=== PATIENT | male | born 1985 ===

== ENCOUNTER 2022-03-25 21:21 | Observation (INO) | payer BC ==
--- OUTSIDE RECORDS SUMMARY | 2022-03-25 21:26 | XMS REPORT | Continuity of Care Document ---
:1985 Author Organization [facility] t Address [address] [place] [address] [address] [place] [address] Care Team Providers Name Role Phone Jr Alaniz MD Attending Clinician JR ALANIZ Attending Clinician Unavailable Doctor Unassigned, [place] Attending Clinician Unavailable Mandy Hughes Attending Clinician Ankit BROOKS, Francia Ruth Attending Clinician [phone] MANDY MANN Attending Clinician Unavailable Tin Attending Clinician Unavailable Ankit BROOKS, Francia Ruth Admitting Clinician [phone] Tin Admitting Clinician Unavailable Payers Payer Name Policy Type Policy Number Effective Date Expiration Date S ource Problems Condition Condition Condition Status Onset Resolution Last Treating Co mments Source Name Details Category Date Date Treatment Clinician Date Acute Acute Disease Active [facility] appendicit appendicit 1 it y of is is 00:00: [address] Allergies, Adverse Reactions, Alerts Allergy Allergy Status Severity Reaction(s) Onset Inactive Treating Comm ents Source Name Type Date Date Clinician NO KNOWN Drug Active Univers ALLERGIE Class ity of S [facility] Social History Social Habit Start Date Stop Date Quantity Comments Source Sex Assigned At [facility]it y of [facility] Exposure to Not sure [place] of SARS-CoV-2 [facility] (event) [place] Tobacco use and 2020-05-17 2020-05-17 Never used Universit y of exposure 00:00:00 00:00:00 [facility] Alcohol intake 2020-05-17 2020-05-17 Current drinker Unive rsity of 00:00:00 00:00:00 of alcohol [facility] (finding) [place] Alcohol Comment 2020-04-25 2020-04-25 [facility] 00:00:00 00:00:00 [facility] Smoking Status Start Date Stop Date Source Never smoker [facility] Medications Ordered Filled Start Stop Current Ordering Indication Dosage Frequency Signature Comments Components Source Medication Medication Date Date Medication? Clinician (SIG) Name Name lactated Yes 1000mL at 75 Univer s ringers IV 1-06 mL/hr, ity of infusion 18:30: 1,000 [place] 1[place]000 [place] 00 IV Medical Infusion, Branch CONTINUOUS , Starting Thu04/25/20 at 1230, Until Discontinu ed, Routine, PACU HYDROmorpho Yes .2mg 0.2 mg, Uni vers ne 06 Slow IV ity of (DILAUDID) 18:20: Push, [place] injection 15 Q5MIN PRN, Medi stu 0.2 mg 10 doses, Branch Starting Thu04/25/20 at 1220, Until Discontinu ed, Routine, Pain (scale 7-10), PACU
Us e approved by (Faculty): PACU USE -ANESTHESI A SERVICE-HY DROMORPHON E INJECTIONS FENTanyl PF Yes 25ug 25 mcg, Uni vers (SUBLIMAZE 04-25 Slow IV ity of (PF)) 18:20: Push, [place] injection 15 Q5MIN PRN, Medi stu 25 mcg 4 doses, Branch Starting Thu04/25/20 at 1220, Until Discontinu ed, Routine, Pain (scale 4-6), PACU ondansetron Yes 4mg 4 mg, Slow Univers (ZOFRAN 04-25 IV Push, ity of (PF)) 18:20: PRN, 1 [place] injection 4 15 dose, Medical mg Starting Branch Thu04/25/20 at 1220, Until Discontinu ed, Routine, Nausea and Vomiting (N/V), PACU bupivacaine Yes PRN, Univer s -epinephrin 04-25 Starting ity of e-pf 17:31: Thu04/25/20 [place] (SENSORCAIN 00 at 1131, Medi stu E Intra-op Branch W/EPINEPHRI NE) 0.25 %-1:200,000 30 mL, lidocaine 1% (PF) (XYLOCAINE) 30 mL piperacilli Yes 3.375g 3.375 g, Univers n-tazobacta 04-25 IV ity of m (ZOSYN) 10:00: [place], [place] 3.375 g in 00 Q6H ABX, Medic al NaCl 0.9% First dose Bran ch (NS) 100 mL on Thu MINI-BAG 04/25/20 at 0400, Until Discontinu ed, 100 mL
R do for Anti-Infec tive: Documented Infection< br>Documen raciel Infection Site: Abdominal< br>Dura tion of Therapy: 7 days morpHINE 2020- No 2mg 2 mg, Slow Un mady injection 2 04-25 IV Push, ity of mg 07:03: 07:02 Q4HPRN, [place] 33 :33 Starting Medical 04/25/20 Branch at 0103, Until Amanda 04/26/20 at 0102, Routine, Pain (scale 7-10), Hold for SBP<110, DBP<60, RR<12, and/or drowsiness /sedation HYDROcodone 2020- No 1{tbl} 1 tablet, Univers -acetaminop 04-2508 Oral, ity of hen (NORCO 07:03: 07:02 Q6HPRN, [place] as 5) 5-325 mg 02 :02 Starting Medi stu tablet 1 Thu04/25/20 Branc h tablet at 0103, Until Thu04/27/20 at 0102, Routine, Pain (scale 4-6), Hold for SBP<110, DBP<60, RR<12, and/or drowsiness /sedation acetaminoph Yes 650mg 650 mg, Un mady en 06 Oral, ity of (TYLENOL) 07:03: Q6HPRN, [place] tablet 650 00 Starting Medic al mg Thu04/25/20 Branch at 0103, Until Discontinu ed, Routine, Pain (scale 1-3) piperacilli 2020- No 3.375g 3.375 g, Univers n-tazobacta 04-25-06 IV ity of m (ZOSYN) 04:30: 04:05 [place]back, [place] 3.375 g in 00 :00 ONCE, 1 Medica l NaCl 0.9% dose, Tue Branc h (NS) 100 mL 04/24/20 at MINI-BAG 2230, 100 mL
Reas on for Anti-Infec tive: Documented Infection< br>Documen raciel Infection Site: Abdominal< br>Duratio n of Therapy: Other (see Comments) NaCl 0.9% Yes 1000mL at 150 Univ ers (NS) IV 1-06 mL/hr, IV ity of infusion 03:30: Infusion, [place] 1,000 mL 00 CONTINUOUS Medic al , Starting Branch Tu 04/24/20 at 2130, Until Discontinu ed, MARYANN iohexol 2020- No 120mL 120 mL, Unive rs (OMNIPAQUE 04-25 Intravenou it y of 350 02:45: 02:34 s, ONCE, 1 [place] BULK-150 00 :00 dose, Tue Medica l mL) 04/24/20 at Branch injection 2045, 120 mL Routine ondansetron 2020- No 4mg 4 mg, Slow Univers (ZOFRAN 04-25 IV Push, ity of (PF)) 01:45: 02:14 ONCE, 1 [place] injection 4 00 :00 dose, [facility] Med ical mg 04/24/20 at Branch 194, MARYANN morpHINE 2020- No 4mg 4 mg, Slow Un mady injection 4 04-25 IV Push, ity of mg 01:45: 02:14 ONCE, 1 [place] 00 :00 dose, Tu Medical 04/24/20 at Branch 194, STAT NaCl 0.9% 2020- No 1000mL at 999 Uni vers (NS) bolus 04-2506 mL/hr, ity of infusion 00:45: 03:36 1,000 mL, [place] 1,000 mL 00 :00 IV Medical Infusion, [place] ONCE, 1 dose, [facility] 04/24/20 at 1845, MARYANN traMADoL 50 2020- No 4647 50mg Take 1 Uni vers mg tablet 04-25 tablet by ity of 00:00: 05:59 mouth [place] 00 :00 every 6 Medical (six) Branch hours as needed for Pain (scale 7-10) for up to 7 days. Indication s: acute pain traMADoL 50 No 4647 50mg Take 1 Uni vers mg tablet 04-25 tablet by ity of 00:00: 05:59 mouth [place] 00 :00 every 6 Medical (six) Branch hours as needed for Pain (scale 7-10) for up to 7 days. Indication s: acute pain traMADoL 50 4647 50mg Take 1 Uni vers mg tablet 04-25 tablet by ity of 00:00: 05:59 mouth [place] 00 :00 every 6 Medical (six) Branch hours as needed for Pain (scale 7-10) for up to 7 days. Indication s: acute pain No known No Univers medications [facility] No known No Univers medications [facility] No known No Univers medications [facility] Vital Signs Vital Name Observation Time Observation Value Comments Source Systolic blood 2020-05-17 16:17:00 115 mm[Hg] [facility] Diastolic blood 2020-05-17 16:17:00 76 mm[Hg] Unive [facility] Heart rate 2020-05-17 16:17:00 60 /min [facility] Body temperature 2020-05-17 16:17:00 36.72 Yoanna [facility] Body height 2020-05-17 16:17:00 182.9 cm [facility] Body weight 2020-05-17 16:17:00 88.905 kg [facility] BMI 2020-05-17 16:17:00 26.58 kg/m2 [facility] Oxygen saturation in 2020-05-17 16:17:00 95 /min [facility] Arterial blood by [facility] Pulse oximetry Branch Systolic blood 2020-04-25 18:55:00 120 mm[Hg] [facility] Diastolic blood 2020-04-25 18:55:00 77 mm[Hg] Unive [facility] Heart rate 2020-04-25 18:55:00 63 /min [facility] Respiratory rate 2020-04-25 18:55:00 18 /min [facility] Oxygen saturation in 2020-04-25 18:55:00 99 /min [facility] Arterial blood by [facility] Pulse oximetry Branch Body temperature 2020-04-25 18:45:00 36.67 Yoanna [facility] Body weight 2020-04-25 09:21:00 89.495 kg [facility] BMI 2020-04-25 09:21:00 26.76 kg/m2 [facility] Body height 2020-04-25 00:34:00 182.9 cm [facility] Procedures Procedure Date / Time Performing Clinician Source Performed ASSIGNMENT OF BENEFITS 2020-05-17 16:08:51 Doctor Ryan, [facility] [place] [facility] CT ABDOMEN PELVIS W 2020-04-25 02:38:46 Mandy Mann [facility] CONTRAST [facility] Branch COVID-19 (ID NOW RAPID 2020-04-25 01:22:00 Mandy Mann [facility] TESTING) Medical Branch LIPASE 2020-04-25 01:22:00 Mandy Mann [facility] COMP. METABOLIC PANEL 2020-04-25 01:22:00 Mandy Mann [facility] ([id number]) [facility] CBC WITH DIFF 2020-04-25 01:22:00 Mandy Mann [facility] URINALYSIS 2020-04-25 01:22:00 Mandy Mann [facility] NOTICE OF PRIVACY 2020-04-25 00:30:23 Doctor Davis, [facility] PRACTICES [place] Medical Branch CONSENT/REFUSAL FOR 2020-04-25 00:26:02 Doctor Ryan [facility] DIAGNOSIS AND TREATMENT [place] Medical [place] AGREEMENTS AUTHORIZATIONS 2020-04-24 06:01:00 Doctor Ryan, [facility] AND IRREVOCABLE [place] Medical [place] ASSIGNMENTS (FORM 2000) Encounters Start End Encounter Admission Attending Care Care Encounter Source Date/Time Date/Time Type Type Clinicians Facility Department ID 2020-05-17 2020-05-17 Office ROBERT Alaniz [id number] Univers 10:09:36 10:42:49 Visit Jr Naseem [id number] i ty of [place]2.[place] Profess[place] [phone] Fl dical [address] 2020-05-17 2020-05-17 [facility] [id number] Univers 10:00:00 10:00:00 JR gray of [facility] 2020-05-17 2020-05-17 Orders Doctor VIGNESH [id number] Univers 00:00:00 00:00:00 Only Unassigned, AISHA [id number] ity of [place] [facility] 4.2.7.2.686 [place] [id number] [address] 2020-04-26 2020-04-26 Telephone [facility] [id number] Univers 00:00:00 00:00:00 Jr Gusman [id number] i ty [id number] [id number] Fl dical nal [address] [place] [address] 2020-04-26 2020-04-26 Clinic [facility] [id number] Univers 00:00:00 00:00:00 Assessment Jr Gusman [id number] ity of [id number] Profess[place] [phone] Fl dical nal [address] [place] [address] 2020-04-24 2020-04-25 Emergency Mandy Mann [facility] [id number] Univers 19:21:00 13:47:00 Francia Pham [id number] ity of Jr Alaniz 4.2.7.2.686 [place] [facility] [phone] [address] 2020-04-24 2020-04-24 Emergency [facility] [id number] Univers 19:21:00 19:21:00 MANYD gray of [facility] 2019-07-13 2019-07-13 Outpatient Atau_P [facility] G [id number] [place] 03:16:00 03:16:00 0325 Medical Group Results Test Test Test Results Result Source Description Time Comments Comments CT ABDOMEN 2020-04- Mild acute appendicitis University of PELVIS W 06 without perforation or [place] CONTRAST 03:23:26 periappendiceal abscess. Branch RL: [id number] AFC: [id number] Critical findings were discussed with SOIL SORT WORKER Mandy Mann, who expressedunderstanding, on 04/24/2020 at 2123 Ordering physician: MANDY MANN Indication: Acute generalized abdominal pain COMPARISON: None TECHNIQUE: Axial images of the abdomen and pelvis are performed followingadministration of intravenous contrast material. Images were reformatted inthe coronal and sagittal plane. CT scan was performed according to ALARA(as low as reasonably achievable) policy. FINDINGS: The lung bases are clear. The liver, gallbladder, spleen, adrenalglands and pancreas are within normal limits. The kidneys are normal inappearance bilaterally without hydronephrosis. No abdominal aortic aneurysmor dissection is appreciated. There is no free fluid in the pelvis. There is no bowel obstruction,widespread diverticulosis or acute diverticulitis. The appendix is mildlydilated, measuring up to 10 mm, with mild adjacent inflammatory change. Noperforation or periappendiceal abscess is appreciated.. ?Bone windowsthrough the abdomen and pelvis demonstrate no osseous destructive lesion. [facility], Radiant Results Inft User - 04/24/2020 9:24 PM CSTOrdering physician: MANDY MONTOYANAIndication: Acute generalized abdominal painCOMPARISON: NoneTECHNIQUE: Axial images of the abdomen and pelvis are performed followingadministration of intravenous contrast material. Images were reformatted inthe coronal and sagittal plane. CT scan was performed according to ALARA(as low as reasonably achievable) policy.FINDINGS: The lung bases are clear. The liver, gallbladder, spleen, adrenalglands and pancreas are within normal limits. The kidneys are normal inappearance bilaterally without hydronephrosis. No abdominal aortic aneurysmor dissection is appreciated.There is no free fluid in the pelvis. There is no bowel obstruction,widespread diverticulosis or acute diverticulitis. The appendix is mildlydilated, measuring up to 10 mm, with mild adjacent inflammatory change. Noperforation or periappendiceal abscess is appreciated.. Bone windowsthrough the abdomen and pelvis demonstrate no osseous destructive lesion.IMPRESSIONMild acute appendicitis without perforation or periappendiceal abscess.RL: 460AFC: [id number] Critical findings were discussed with SOIL SORT WORKER aMndy Mann, who expressedunderstanding, on 04/24/2020 at 2123 ALYSIS 2020-04-25 01:59:00 Test Item Value Reference Range Interpretation Comme nts APPEARANCE (test code = Clear Clear 0549007173) COLOR (test code = 1399320444) Yellow Yellow PH (test code = 5947244870) 4.8-8.0 SP GRAVITY (test code = 1.003-1.030 9530935859) GLU U QUAL (test code = Normal Normal 1989873681) BLOOD (test code = 6881609349) Negative Negative KETONES (test code = 3172346872) Negative Negative PROTEIN (test code = 2887-8) Negative Negative UROBILIN (test code = 2.0 mg/dL Normal A 8666386380) BILIRUBIN (test code = Negative Negative 4303198430) NITRITE (test code = 5774027571) Negative Negative LEUK EITAN (test code = Negative Negative 2316226359) RBC/HPF (test code = 0746474950) <1 See_Comment [Automated message] The system which ge nerated this result transmit raciel reference range: 0 - 3 HP F. The reference range was not used to interpret th is result as normal/abnormal . WBC/HPF (test code = 6061799982) See_Comment [Automated message] The system which ge nerated this result transmit raciel reference range: 0 - 5 HP F. The reference range was not used to interpret th is result as normal/abnormal . BACTERIA (test code = Negative Negative 9473660086) SQ EPITH (test code = <1 HPF 2234040968) Lab Interpretation (test code = Abnormal 26322-3) [facility] NOW RAPID TESTING)2020-04-25 01:55:00 Test Item Value Reference Range Interpretation Comments SARS-CoV-2 Rapid ID NOW Not Detected Not Detected (test code = 76411-5) JONNATHAN (test code = JONNATHAN) ID NOW COVID-19 Assay is an isothermal nucleic acid amplification test intended for the qualitative detection of nucleic acid from SARS-CoV-2 viral RNA in nasopharyngeal (SOIL SORT WORKER) specimens. It is used under Emergency Use Authorization (EUA) by FDA. The limit of detection (LOD) of the assay is 125 Genome Equivalents/mL. A positive result is indicative of the presence of SARS-CoV-2 RNA. ?Clinical correlation with patient history and other diagnostic information is necessary to determine patient infection status. A negative (Not Detected) result does not preclude SARS-CoV-2 infection. In patients with clinical symptoms and other tests that are consistent with SARS-CoV-2 infection, negative results should be treated as presumptive negative and a new specimen should be tested with alternative PCR molecular test. Invalid: Please collect a new specimen for repeat patient testing if clinically indicated. Lab Interpretation Normal (test code = 65226-9) [facility]. METABOLIC PANEL (44548)2020-04-25 01:45:00 Test Item Value Reference Range Interpretation Comments NA (test code = 138 mmol/L 135-145 2411694336) K (test code = 4.0 mmol/L 3.5-5 7207015538) CL (test code = 101 mmol/L 98-108 4542665853) CO2 TOTAL (test code = 29 mmol/L 23-31 6466948052) AGAP (test code = 2-16 9726663354) BUN (test code = 14 mg/dL 7-23 6272781530) GLUCOSE (test code = 102 mg/dL 70-110 6204811454) CREATININE (test code 1.08 mg/dL 0.6-1.25 = 6907213914) TOTAL BILI (test code 0.6 mg/dL 0.1-1.1 = 6131188778) CALCIUM (test code = 8.6 mg/dL 8.6-10.6 0810603077) T PROTEIN (test code = 7.5 g/dL 6.3-8.2 0960153570) ALBUMIN (test code = 4.4 g/dL 3.5-5 3842511943) ALK PHOS (test code = 49 U/L 34-122 7467065113) ALTv (test code = 45 U/L 5-50 1742-6) AST(SGOT) (test code = 30 U/L 13-40 8769015688) eGFR Calculation mL/min/1.73m2 (Non-) (test code = 5155320763) eGFR Calculation mL/min/1.73m2 () (test code = 6620202600) JONNATHAN (test code = JONNATHAN) Association of Glomerular Filtration Rate (GFR) and Staging of Kidney Disease* + -+ + ---+| GFR (mL/min/1.73 m2) ?| With Kidney Damage ?| ?Without Kidney Damage+ -------+ ------+ ---------+| ?>90 ?| ?Stage one ?| ? Normal ?+ --+ -+ ----+| ?60-89 ?| ?Stage two ?| ? Decreased GFR ? + -+ + ---+| ?30-59 ?| ?Stage three ?| ? Stage three ? + -+ + ---+| ?15-29 ?| ?Stage four ? | ? Stage four ?+ --+ -+ ----+| ?<15 (or dialysis) ? ?| ?Stage five ? | ? Stage five ?+ --+ -+ ----+ *Each stage assumes the associated GFR level has been in effect for at least three months. ?Stages 1 to 5, with or without kidney disease, indicate chronic kidney disease. Notes: Determination of stages one and two (with eGFR >59mL/min/1.73 m2) requires estimation of kidney damage for at least three months as defined by structural or functional abnormalities of the kidney, manifested by either:Pathological abnormalities or Markers of kidney damage (including abnormalities in the composition of the blood or urine or abnormalities in imaging tests). [facility]45:00 Test Item Value Reference Range Interpretation Comments LIPASE (test code = 3815252221) 1307 U/L 0-220 H Lab Interpretation (test code = Abnormal 01697-4) [facility] [id number] 01:32:00 Test Item Value Reference Range Interpretation Comments WBC (test code = See_Comment H [Automated 6690-2) message] The system which generated this result transmit raciel reference range : 4.20 - 10.70 10*3/?L. The reference range was not used to interpret this result as normal/abnormal . RBC (test code = See_Comment [Automated 789-8) message] The system which generated this result transmit raciel reference range : 4.26 - 5.52 10*6/?L. The reference range was not used to interpret this result as normal/abnormal . HGB (test code = 16.5 g/dL 12.2-16.4 H 718-7) HCT (test code = 47.4 % 38.4-49.3 4544-3) MCV (test code = 88.6 fL 81.7-95.6 787-2) MCH (test code = 30.8 pg 26.1-32.7 785-6) MCHC (test code = 34.8 g/dL 31.2-35 786-4) RDW-SD (test code = 40.0 fL 38.5-51.6 46555-2) RDW-CV (test code = 12.2 % 12.1-15.4 788-0) PLT (test code = See_Comment [Automated 777-3) message] The system which generated this result transmit raciel reference range : 150 - 328 10*3/ ?L. The reference range was not u sed to interpret th is result as normal/abnormal . MPV (test code = 9.4 fL 9.8-13 L 94691-8) NRBC/100 WBC (test See_Comment [Automat ed code = 8181971694) message] The system which generated this result transmit raciel reference range : 0.0 - 10.0 /100 WBCs. The reference range was not used to interpret this result as normal/abnormal . NRBC x10^3 (test code <0.01 See_Comment [Auto mated = 8483574988) message] The system which generated this result transmit raciel reference range : 10*3/?L. The reference range was not used to interpret this result as normal/abnormal . GRAN MAT (NEUT) % 81.5 % (test code = 770-8) IMM GRAN % (test code 0.60 % = 8688386871) LYMPH % (test code = 8.5 % 736-9) MONO % (test code = 6.2 % 5905-5) EOS % (test code = 2.5 % 713-8) BASO % (test code = 0.7 % 706-2) GRAN MAT x10^3(ANC) 13.08 10*3/uL 1.99-6.95 H (test code = 6682998710) IMM GRAN x10^3 (test 0.09 10*3/uL 0-0.06 H code = 5846832733) LYMPH x10^3 (test code 1.37 10*3/uL 1.09-3.23 = 731-0) MONO x10^3 (test code 0.99 10*3/uL 0.36-1.02 = 742-7) EOS x10^3 (test code = 0.40 10*3/uL 0.06-0.53 711-2) BASO x10^3 (test code 0.11 10*3/uL 0.01-0.09 H = 704-7) Lab Interpretation Abnormal (test code = 10061-3) [facility]"
[2022-03-25] MEDS ORDERED: GLUCAGON 1 MG/VIAL ONE (22:10)
[2022-03-25] MEDS ORDERED: NA CHLORIDE 0.9% 1,000 ML ONE (22:10)
[2022-03-25] MEDS ORDERED: ONDANSETRON 4 MG/2 ML VIAL ONE (22:10)
[2022-03-25] MEDS ORDERED: NA CHLORIDE 0.9% 500 ML ONE (22:10)
[2022-03-25 23:08] LABS: SARS-CoV-2 Antigen Rapid Res Negative (Negative)
[2022-03-25 23:11] LABS: Hematocrit 44.6 % (39.6-49.0); Lymphocytes % 26.6 % (15.3-44.8); MCV 89.2 fL (80-100); MPV 7.6 fL (7.6-11.3)
[2022-03-25 23:13] LABS: Protime INR 1.2
[2022-03-25 23:24] LABS: Bilirubin Direct 0.1 mg/dL (0-0.2); Bilirubin Total 0.6 mg/dL (0.2-1.0); Magnesium 2.1 mg/dL (1.8-2.4); Potassium 3.7 mmol/L (3.5-5.1); Protein, Total 7.4 g/dL (6.4-8.2); Troponin High Sensitivity 7.3 pg/mL (<58.9)
--- NOTE | 2022-03-25 23:52 | ER ---
Nurse's Notes [facility] Name: Keaton Alejandro Age: 36 yrs Sex: Male : 1985 Arrival Date: 03/25/2022 Time: 21:25 Bed 28 Private MD: Diagnosis: Esophageal obstruction-recurrent;Food in esophagus Presentation: 03/25 21:45 Chief complaint: Patient states: he has a condition in his throat where he sometimes bb gets food stuck about 2 hours ago he was eating fajitas and now has something stuck. Coronavirus screen: At this time, the client does not indicate any symptoms associated with coronavirus-19. Ebola Screen: No symptoms or risks identified at this time. Initial Sepsis Screen: Does the patient meet any 2 criteria? No. Patient's initial sepsis screen is negative. Does the patient have a suspected source of infection? No. Patient's initial sepsis screen is negative. Risk Assessment: Do you want to hurt yourself or someone else? Patient reports no desire to harm self or others. Onset of symptoms was March 25, 2022. 21:45 Method Of Arrival: Ambulatory bb 21:45 Acuity: PAYAM 2 bb Triage Assessment: 03/26 01:02 General: Appears in no apparent distress. Respiratory: the patient has moderate tw5 shortness of breath. 01:02 Respiratory: Onset: The symptoms/episode began/occurred suddenly. tw5 Historical: - Allergies: 03/25 21:47 No Known Allergies; bb - Home Meds: 21:47 Unable to obtain [Active]; bb - Social history:: Smoking status: unknown. Screenin:55 Abuse screen: Denies threats or abuse. Denies injuries from another. Nutritional tw5 screening: No deficits noted. Tuberculosis screening: No symptoms or risk factors identified. Fall Risk None identified. Assessment: 21:55 General: Appears in no apparent distress. Behavior is calm, cooperative, appropriate tw5 for age, Reports "The food got stuck around 6:30 tonight. I have been drinking water trying to get it down but it just wont. The water just come back up. Last time I got food stuck like this they had to do an endoscopy. The medication and soda didn't' work. That was about 4 year ago.". Pain: Complains of pain in mid-sternal area Pain currently is 2 out of 10 on a pain scale. Cardiovascular: Rhythm is regular. Respiratory: Airway is patent Trachea midline Respiratory effort is even, unlabored, 22:30 Reassessment: No changes from previously documented assessment. Patient and/or family tw5 updated on plan of care and expected duration. Pain level reassessed. Patient is alert, oriented x 3, equal unlabored respirations, skin warm/dry/pink. 23:39 Reassessment: No changes from previously documented assessment. Patient and/or family tw5 updated on plan of care and expected duration. Pain level reassessed. Patient is alert, oriented x 3, equal unlabored respirations, skin warm/dry/pink. 23:39 EENT: Reports "The soda just feels weird like it is just sitting in my throat.". tw5 03/26 00:21 General: Reports "I was able to get a little bit of the food up when all the soda came tw5 back up. Sorry but I have still not been able to keep any water or soda down.". Vital Signs: 03/25 21:45 BP 133 / 95; Pulse 90; Resp 16 S; Temp 99.1(TE); Pulse Ox 97% on R/A; Weight 83.91 kg bb (R); Height 6 ft. 0 in. (182.88 cm) (R); Pain 0/10; 21:55 BP 124 / 80; Pulse 80; Resp 18; Pulse Ox 96% on R/A; Pain 2/10; tw5 22:30 BP 132 / 87; Pulse 78; Resp 18; Pulse Ox 99% on R/A; Pain 2/10; tw5 23:39 BP 123 / 76; Pulse 89; Resp 12; Pulse Ox 98% on R/A; tw5 03/26 00:21 BP 123 / 66; Pulse 86; Resp 18; Pulse Ox 100% on R/A; Pain 0/10; tw5 03/25 21:45 Body Mass Index 25.09 (83.91 kg, 182.88 cm) bb ED Course: 03/25 21:25 Patient arrived in ED. bp1 21:47 Triage completed. bb 21:47 Arm band placed on Patient placed in an exam room, on a stretcher, on pulse oximetry. bb 21:53 Lela Foster is Primary Nurse. tw5 21:53 Gregg Frias MD is Attending Physician. beulah 21:55 Patient has correct armband on for positive identification. Placed in gown. Bed in low tw5 position. Call light in reach. Pulse ox on. NIBP on. Door closed. Noise minimized. Moved to private room. Warm blanket given. Verbal reassurance given. 22:07 EKG done, by ED staff, reviewed by Gregg Frias MD. tw5 22:24 Basic Metabolic Panel Sent. tw 22:24 CBC with Diff Sent. tw5 22:24 Magnesium Sent. tw5 22:24 NT PRO-BNP Sent. tw5 22:24 PT-INR Sent. tw5 22:24 Troponin HS Sent. tw5 22:24 LFT's Sent. tw5 22:24 SARS RAPID Sent. tw 22:30 Initial lab(s) drawn, by me, sent to lab. COVID swab sent to lab. Inserted saline lock: tw5 20 gauge in left antecubital area, using aseptic technique. Blood collected. 22:46 XRAY Chest (1 view) In Process Unspecified. EDMS 23:39 Diet: pop provided. tw5 23:51 Checo Lopez MD is Hospitalizing Provider. beulah 23:51 Baldo Lopez MD is Hospitalizing Provider. beulah 23:59 Gordon Damian MD is Hospitalizing Provider. la1 03/26 01:02 No provider procedures requiring assistance completed. Patient admitted, IV remains in tw5 place. Administered Medications: 03/25 22:24 Drug: NS 0.9% 500 ml Route: IV; Rate: bolus; Site: left antecubital; tw03/26 00:17 Follow up: Response: No adverse reaction; IV Status: Completed infusion; IV Intake: tw5 500ml 03/25 22:24 Drug: NS 0.9% 1000 ml Route: IV; Rate: 125 ml/hr; Site: left antecubital; tw03/26 01:02 Follow up: IV Status: Infusion continued upon admission tw5 03/25 22:26 Drug: Zofran (Ondansetron) 4 mg Route: IVP; Site: left antecubital; tw03/26 00:17 Follow up: Response: No adverse reaction 03/25 22:30 Drug: Glucagon 1 mg Route: IVP; Site: left antecubital; tw5 03/26 00:17 Follow up: Response: No adverse reaction 03/25 23:39 Drug: Glucagon 1 mg Route: IVP; Site: left antecubital; 03/26 00:18 Follow up: Response: No adverse reaction 00:22 Drug: ProTONIX (pantoprazole) 40 mg Route: IVP; Site: left antecubital; 01:02 Follow up: Response: No adverse reaction Medication: 03/25 21:55 VIS not applicable for this client. tw Intake: 03/26 00:17 IV: 500ml; Total: 500ml. Outcome: 03/25 23:52 Decision to Hospitalize by Provider. beulah 03/26 01:02 Admitted to ER Hold. Please see [facility] for further documentation. Condition: stable Discharge instructions given to patient, Instructed on the need for admit. 08:05 Patient left the ED. iw Signatures: Dispatcher [employer] Gregg Ziegler MD MD cha Ballard, Brenda, RN RN Mayda Ayon RN RN iw Moose Bettencourt, CARGO BROKER-C CARGO BROKER-Cla1 Marie Moon Tiffany tw5
--- NOTE | 2022-03-25 23:52 | EDPHYS ---
Physician Documentation [facility] Name: Keaton Alejandro Age: 36 yrs Sex: Male : 1985 Arrival Date: 03/25/2022 Time: 21:25 Bed 28 Private MD: ED Physician Gregg Frias HPI: 03/25 22:34 This 36 yrs old Male presents to ER via Ambulatory with complaints of Foreign beulah Body In Throat, Breathing Difficulty. 22:34 The patient has shortness of breath at rest, with light activity. Onset: The beulah symptoms/episode began/occurred 4 hour(s) ago. Duration: The symptoms are continuous, and are unchanged since they started. The patient's shortness of breath is aggravated by drinking, eating, is alleviated by nothing. Associated signs and symptoms: The patient has no apparent associated signs or symptoms. Severity of symptoms: At their worst the symptoms were mild in the emergency department the symptoms are unchanged. The patient has not experienced similar symptoms in the past. Historical: - Allergies: 21:47 No Known Allergies; bb - Home Meds: :47 Unable to obtain [Active]; bb - Social history:: Smoking status: unknown. ROS: 22:35 Constitutional: Negative for fever, chills, and weight loss, Eyes: Negative for injury, beulah pain, redness, and discharge, ENT: Negative for injury, pain, and discharge, Neck: Negative for injury, pain, and swelling, Cardiovascular: Negative for chest pain, palpitations, and edema, Respiratory: Negative for shortness of breath, cough, wheezing, and pleuritic chest pain, Back: Negative for injury and pain, : Negative for injury, bleeding, discharge, and swelling, MS/Extremity: Negative for injury and deformity, Skin: Negative for injury, rash, and discoloration, Neuro: Negative for headache, weakness, numbness, tingling, and seizure, Psych: Negative for depression, anxiety, suicide ideation, homicidal ideation, and hallucinations, Allergy/Immunology: Negative for hives, rash, and allergies, Endocrine: Negative for neck swelling, polydipsia, polyuria, polyphagia, and marked weight changes, Hematologic/Lymphatic: Negative for swollen nodes, abnormal bleeding, and unusual bruising. 22:35 Abdomen/GI: Positive for nausea and vomiting. Exam: 22:35 Constitutional: This is a well developed, well nourished patient who is awake, alert, beulah and in no acute distress. Head/Face: Normocephalic, atraumatic. Eyes: Pupils equal round and reactive to light, extra-ocular motions intact. Lids and lashes normal. Conjunctiva and sclera are non-icteric and not injected. Cornea within normal limits. Periorbital areas with no swelling, redness, or edema. ENT: Nares patent. No nasal discharge, no septal abnormalities noted. Tympanic membranes are normal and external auditory canals are clear. Oropharynx with no redness, swelling, or masses, exudates, or evidence of obstruction, uvula midline. Mucous membranes moist. Neck: Trachea midline, no thyromegaly or masses palpated, and no cervical lymphadenopathy. Supple, full range of motion without nuchal rigidity, or vertebral point tenderness. No Meningismus. Chest/axilla: Normal chest wall appearance and motion. Nontender with no deformity. No lesions are appreciated. Cardiovascular: Regular rate and rhythm with a normal S1 and S2. No gallops, murmurs, or rubs. Normal PMI, no JVD. No pulse deficits. Respiratory: Lungs have equal breath sounds bilaterally, clear to auscultation and percussion. No rales, rhonchi or wheezes noted. No increased work of breathing, no retractions or nasal flaring. Abdomen/GI: Soft, non-tender, with normal bowel sounds. No distension or tympany. No guarding or rebound. No evidence of tenderness throughout. Back: No spinal tenderness. No costovertebral tenderness. Full range of motion. Skin: Warm, dry with normal turgor. Normal color with no rashes, no lesions, and no evidence of cellulitis. MS/ Extremity: Pulses equal, no cyanosis. Neurovascular intact. Full, normal range of motion. Neuro: Awake and alert, GCS 15, oriented to person, place, time, and situation. Cranial nerves II-XII grossly intact. Motor strength 5/5 in all extremities. Sensory grossly intact. Cerebellar exam normal. Normal gait. Psych: Awake, alert, with orientation to person, place and time. Behavior, mood, and affect are within normal limits. 22:35 ECG was reviewed by the Attending Physician. Vital Signs: 21:45 BP 133 / 95; Pulse 90; Resp 16 S; Temp 99.1(TE); Pulse Ox 97% on R/A; Weight 83.91 kg bb (R); Height 6 ft. 0 in. (182.88 cm) (R); Pain 0/10; 21:55 BP 124 / 80; Pulse 80; Resp 18; Pulse Ox 96% on R/A; Pain 2/10; tw5 22:30 BP 132 / 87; Pulse 78; Resp 18; Pulse Ox 99% on R/A; Pain 2/10; tw5 23:39 BP 123 / 76; Pulse 89; Resp 12; Pulse Ox 98% on R/A; tw5 03/26 00:21 BP 123 / 66; Pulse 86; Resp 18; Pulse Ox 100% on R/A; Pain 0/10; tw5 03/25 21:45 Body Mass Index 25.09 (83.91 kg, 182.88 cm) bb MDM: 03/25 21:53 Patient medically screened. [facility] 22:36 Differential diagnosis: Nonspecific abd pain, gastroenteritis. Data reviewed: vital beulah signs, nurses notes, lab test result(s), EKG, radiologic studies, CT scan, plain films. Data interpreted: surveillance system monitor: rate is 78 beats/min, rhythm is regular, Pulse oximetry: on room air is 99 %. Test interpretation: by ED physician or midlevel provider: ECG, plain radiologic studies. Counseling: I had a detailed discussion with the patient and/or guardian regarding: the historical points, exam findings, and any diagnostic results supporting the discharge/admit diagnosis, lab results, radiology results. 03/25 21:55 Order name: Basic Metabolic Panel; Complete Time: 23:29 [facility] 03/25 21:55 Order name: CBC with Diff; Complete Time: 23:29 [facility] 03/25 21:55 Order name: LFT's; Complete Time: 23:29 [facility] 03/25 21:55 Order name: Magnesium; Complete Time: 23:29 [facility] 03/25 21:55 Order name: NT PRO-BNP; Complete Time: 23:29 [facility] 12 21:55 Order name: PT-INR; Complete Time: 23:29 [facility] 03/25 21:55 Order name: Troponin HS; Complete Time: 23:29 [facility] 03/25 21:55 Order name: XRAY Chest (1 view) [facility] 03/25 21:55 Order name: SARS RAPID; Complete Time: 23:29 [facility] 03/25 21:55 Order name: EKG; Complete Time: 21:56 [facility] 03/25 21:55 Order name: Cardiac monitoring; Complete Time: 22:07 [facility] 03/25 21:55 Order name: EKG - Nurse/Tech; Complete Time: 22:07 [facility] 03/25 21:55 Order name: IV Saline Lock; Complete Time: 22:24 [facility] 03/25 21:55 Order name: Labs collected and sent; Complete Time: 22:24 [facility] 03/25 21:55 Order name: O2 Per Protocol; Complete Time: 22:24 [facility] 03/25 21:55 Order name: O2 Sat Monitoring; Complete Time: 22:24 [facility] 03/25 22:34 Order name: PO challenge: soda when able; Complete Time: 23:39 [facility] 03/25 22:46 Order name: Labs - recollect needed: all labs; Complete Time: 23:39 mw2 EC:35 Rate is 86 beats/min. Rhythm is regular. QRS [place] is Normal. DC interval is normal. QRS beulah interval is normal. QT interval is normal. No Q waves. T waves are Normal. No ST changes noted. Clinical impression: Normal ECG and No evidence of ischemia. Interpreted by me. Reviewed by me. Administered Medications: 22:24 Drug: NS 0.9% 500 ml Route: IV; Rate: bolus; Site: left antecubital; 03/26 00:17 Follow up: Response: No adverse reaction; IV Status: Completed infusion; IV Intake: tw5 500ml 03/25 22:24 Drug: NS 0.9% 1000 ml Route: IV; Rate: 125 ml/hr; Site: left antecubital; 03/26 01:02 Follow up: IV Status: Infusion continued upon admission 03/25 22:26 Drug: Zofran (Ondansetron) 4 mg Route: IVP; Site: left antecubital; 03/26 00:17 Follow up: Response: No adverse reaction 03/25 22:30 Drug: Glucagon 1 mg Route: IVP; Site: left antecubital; 03/26 00:17 Follow up: Response: No adverse reaction 03/25 23:39 Drug: Glucagon 1 mg Route: IVP; Site: left antecubital; 03/26 00:18 Follow up: Response: No adverse reaction 5 00:22 Drug: ProTONIX (pantoprazole) 40 mg Route: IVP; Site: left antecubital; tw5 01:02 Follow up: Response: No adverse reaction tw5 Disposition Summary: 03/25/22 23:52 Hospitalization Ordered Hospitalization Status: Observation beulah Condition: Stable beulah Problem: new beulah Symptoms: have improved beulah Bed/Room Type: Standard beulah Provider: Gordon Damian(03/25/22 23:59) la1 Location: [facility] ER HOLD(03/26/22 00:50) mw2 Room Assignment: ERHOLD-(03/26/22 00:50) mw2 Diagnosis - Esophageal obstruction - recurrent beulah - Food in esophagus beulah Forms: - Medication Reconciliation Form beulah - SBAR form beulah Signatures: Dispatcher [employer] Gregg Ziegler MD MD cha Ballard, Brenda, RN RN bb Moose Bettencourt FNP-C [facility] Fabby Chen mw2 Lela Foster tw5 Corrections: (The following items were deleted from the chart) 03/25 23:59 23:52 Baldo Lopez cha la1 03/26 00:50 03/25 23:52 Telemetry/MedSurg (observation) beulah mw2 03/26 00:50 03/25 23:52 beulah mw2
[2022-03-26] MEDS ORDERED: PANTOPRAZOLE 40 MG INJ ONE (00:16)
--- NOTE | 2022-03-26 00:40 | P.HP ---
Certification for Inpatient Patient admitted to: Observation With expected LOS: <2 Midnights Patient will require the following post-hospital care: None Practitioner: I am a practitioner with admitting privileges, knowledge of patient current condition, hospital course, and medical plan of care. Services: Services provided to patient in accordance with Admission requirements found in Title 42 Section 412.3 of the Code of Federal Regulations <RutMoose Krueger - Last Filed: 03/26/22 00:37> Patient History Date of Service: 03/26/22 Reason for admission: Food bolus History of Present Illness: 36-year-old male with history of previous food bolus presents emergency department for foreign body sensation in throat after eating fajitas. He was given 2 rounds of IV glucagon in ED still unable to tolerate any oral liquids. ED discussed case with GI on-call who recommends admission to hospital service with EGD in the morning. 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 - Family History Family History: Reviewed- Non-Contributory - Social History Smoking Status: Never smoker Alcohol use: No CD- Drugs: No Caffeine use: Yes Place of Residence: Home <Moose Bettencourt - Last Filed: 03/26/22 00:37> Date of Service: 03/26/22 <Gordon Damian - Last Filed: 03/26/22 11:55> Review of Systems 10-point ROS is otherwise unremarkable Gastrointestinal: Abdominal Pain, Other (Foreign body sensation) <Moose Bettencourt - Last Filed: 03/26/22 00:37> Physical Examination - Physical Exam General: Alert, In no apparent distress, Oriented x3 HEENT: Atraumatic, PERRLA, Mucous membr. moist/pink, EOMI, Sclerae nonicteric Neck: Supple, 2+ carotid pulse no bruit, No LAD, Without JVD or thyroid abnormality Respiratory: Clear to auscultation bilaterally, Normal air movement Cardiovascular: Regular rate/rhythm, Normal S1 S2 Gastrointestinal: Normal bowel sounds, No tenderness Musculoskeletal: No tenderness Integumentary: No rashes Neurological: Normal gait, Normal speech, Normal strength at 5/5 x4 extr, Normal tone, Normal affect Lymphatics: No axilla or inguinal lymphadenopathy - Studies Laboratory Data (last 24 hrs) 03/25/22 22:55: PT 13.2 H, INR 1.20 03/25/22 22:55: WBC 7.40, Hgb 15.6, Hct 44.6, Plt Count 297 03/25/22 22:55: Sodium 138, Potassium 3.7, BUN 15, Creatinine 1.15, Glucose 125 H, Magnesium 2.1, Total Bilirubin 0.6, AST 38 H, ALT 39, Alkaline Phosphatase 47 <Moose Bettenocurt - Last Filed: 03/26/22 00:37> - Studies Laboratory Data (last 24 hrs) 03/25/22 22:55: PT 13.2 H, INR 1.20 03/25/22 22:55: WBC 7.40, Hgb 15.6, Hct 44.6, Plt Count 297 03/25/22 22:55: Sodium 138, Potassium 3.7, BUN 15, Creatinine 1.15, Glucose 125 H, Magnesium 2.1, Total Bilirubin 0.6, AST 38 H, ALT 39, Alkaline Phosphatase 47 <Gordon Damian - Last Filed: 03/26/22 11:55> Assessment and Plan - Plan Assessment: Food bolus Plan: Food bolus: NPO, EGD in Am. PRN pain meds/anti-emetics. DVT PPX:SCD Code status: Full Discharge Plan: Home Plan to discharge in: 24 Hours - Advance Directives Does patient have a Living Will: No Does patient have a Durable POA for Healthcare: No - Code Status/Comfort Care Code Status Assessed: Yes (Full code) Critical Care: No Time Spent Managing Pts Care (In Minutes): 50 <Moose Bettencourt - Last Filed: 03/26/22 00:37> Physician Review: Patient Assessed, Agree with Above Assessment and Plan <Gordon Damian - Last Filed: 03/26/22 11:55>
[2022-03-26] MEDS ORDERED: Ringers Lactate 1,000 ML IV SCH (01:00)
[2022-03-26] MEDS ORDERED: ONDANSETRON 4 MG/2 ML VIAL IV PRN (01:00)
[2022-03-26] MEDS ORDERED: MORPHINE 2 MG/ML SYR IV PRN (01:00)
[2022-03-26] MEDS ORDERED: Ringers Lactate 1,000 ML IV ONE ×2 (01:15→08:57)
[2022-03-26 01:24] VITALS: BMI 24.9
[2022-03-26] MEDS ORDERED: INFLUENZA VACCINE (for 6+ mo) 0.5 ML DOSE IMVAC ONE (08:00)
[2022-03-26] MEDS ORDERED: LIDOCAINE 1% MPF 5 ML VIAL ONE (09:16)
[2022-03-26] MEDS ORDERED: propofoL 200 MG/20 ML VIAL IV ONE ×2 (09:16)
[2022-03-26] MEDS ORDERED: MIDAZOLAM HCL 2 MG/2 ML INJ ONE (09:45)
--- NOTE | 2022-03-26 10:00 | ENDO RPT ---
[address], [address] EGD PROCEDURE REPORT EXAM DATE: 03/26/2022 PATIENT NAME: Keaton Alejandro MR#: [id number] BIRTHDATE: 1985 ATTENDING: Zach Estrada Dr STATUS: inpatient - [facility] TECHNICAL WRITER AND EDITOR: Eveline Patterson RN and Araceli Jama INDICATIONS: The patient is a 36 yr old Male here for an EGD due to dysphagia, esophageal meat bolus impaction (after eating fajita steak last night) PROCEDURE PERFORMED: EGD with foreign body removal MEDICATIONS: Per Anesthesia. TOPICAL ANESTHETIC: none CONSENT: The patient understands the risks and benefits of the procedure and understands that these risks include, but are not limited to: sedation, allergic reaction, infection, perforation and/or bleeding. Alternative means of evaluation and treatment include, among others: physical exam, x-rays, and/or surgical intervention. The patient elects to proceed with this endoscopic procedure. DESCRIPTION OF PROCEDURE: During intra-op preparation period all mechanical medical equipment was checked for proper function. Hand hygiene and appropriate measures for infection prevention was taken. Procedure, possible complications, and alternatives including but not limited to the possibility of bleeding, perforation, tear, infection, sepsis, need for surgery, need for blood transfusion, and anesthesia related complications were explained to the patient. After the risks, benefits and alternatives of the procedure were thoroughly explained, Informed consent was verified, confirmed and timeout was successfully executed by the treatment team. The patient was placed in the left lateral position. The patient was anesthetized with topical anesthesia. Through the anesthetized oropharyngeal area, the scope was passed without any difficulty. The EG-[id number] ([id number]) and [id number] ([id number]) endoscope was introduced through the mouth and advanced to the second portion of the duodenum. Retroflexed views revealed a small hiatal hernia. The gastroscope was then slowly withdrawn and removed. A meat bolus (fajita steak) was found in the lower esophagus. A stricture was found in the lower esophagus. LA Class B esophagitis was found A small hiatal hernia was found ADVERSE EVENTS: There were no complications. IMPRESSIONS: 1. Meat bolus (fajita steak) in the lower esophagus, s/p removal 2. Stricture in the lower esophagus 3. LA Class B esophagitis 4. Small hiatal hernia RECOMMENDATIONS: acid suppression therapy REPEAT EXAM: Return in 1 week(s) for EGD with dilatation. Zach Estrada Dr eSigned: Zach Estrada Dr 03/26/2022 9:59 AM cc: CPT CODES: ICD9 CODES: PATIENT NAME: Keaton Alejandro MR#: [id number]
--- NOTE | 2022-03-26 11:29 | RAD REPORT ---
EXAM DESCRIPTION: RAD - Chest Single View - 03/25/2022 10:45 pm CLINICAL HISTORY: 36 years, Male, Cough COMPARISON: None. FINDINGS: Single view of the chest was obtained portable. No prior films are available for compariso n. There is mild hyperinflation. External EKG leads within the [id number] limits diagnosis. The ca rdiomediastinal silhouette demonstrate to be unremarkable. The heart is not enlarged. The thoracic ao rta is unremarkable. The pulmonary vasculature is normal distribution. Costophrenic angles are sharp. No areas of consolidation or masses are seen. The rest of the soft tissue and bony structures de monstrate to be unremarkable. IMPRESSION: No acute cardiopulmonary disease identified. Electronically signed by: Gray Dove MD 03/25/2022 11:30 PM [employer] Due to temporary technical issues with the PACS/Fluency reporting system, reports are being signed by the in house radiologists without review as a courtesy to insure prompt reporting. The interpreting radiologist is fully responsible for the content of the report.
--- NOTE | 2022-03-26 11:32 | P.DS ---
Admission Date: 03/26/22 Discharge Date: 03/26/22 Disposition: ROUTINE DISCHARGE Discharge Condition: GOOD Reason for Admission: Food bolus Consultations: 1. Gastroenterology Procedures: - 03/26/2022 - Esophagogastroduodenoscopy Hospital Course: DIAGNOSES: # Acute Food Bolus secondary to a Distal Esophageal Stricture # LA Grade B Esophagitis # Small Hiatal Hernia HOSPITAL COURSE: Mr. Keaton Alejandro is a pleasant 36 year old male with a past medical history significant of a prior food bolus 3-4 years ago who was admitted to the [facility] on 03/26/2022 for a food bolus. He was admitted to the Medicine service. Gastroenterology was consulted and he underwent an esophagogastroduodenoscopy with foreign body removal. He was found to have LA grade B esophagitis with a distal esophageal stricture. Post- operatively, he was started on a soft diet and tolerated it without any issues. He has been cleared for discharge by Dr. Estrada with outpatient follow-up. He plans for a repeat EGD with dilitation in about 1 week. He was advised to start BID pantoprazole. On 03/26/2022, he was seen on rounds and deemed medically stable for discharge. He was discharged with instructions to schedule follow-up appointments with his PCP (Dr. Key) and with Gastroenterology (Dr. Estrada) in 1 week. He was given the opportunity to ask questions and reported no further questions. Furthermore, all questions were answered to the best of my ability. A copy of this discharge summary will be sent to the above providers to facilitate continuity of care. Today, I personally spent 20 minutes on his case, of which greater than 50% of the time was spent in patient education, counseling, and coordination of care as described above. Vital Signs/Physical Exam: Temp Pulse Resp BP Pulse Ox 58 12 113/72 03/26/22 04:00 03/26/22 04:00 03/26/22 04:00 General: Alert, In no apparent distress, Oriented x3 HEENT: Atraumatic, Mucous membr. moist/pink, EOMI, Sclerae nonicteric Neck: JVD not distended Respiratory: Clear to auscultation bilaterally, Normal air movement Cardiovascular: No edema, Regular rate/rhythm, Normal S1 S2, No gallops, No rubs, No murmurs Gastrointestinal: Normal bowel sounds, Soft and benign, Non-distended, No tenderness, No rebound, No guarding Musculoskeletal: No clubbing Integumentary: No rashes Neurological: Normal speech, Cranial nerves 3-12 intact, Normal affect Laboratory Data at Discharge: WBC 7.40 K/uL (4.3-10.9) 03/25/22 22:55 Hgb 15.6 g/dL (13.6-17.9) 03/25/22 22:55 Hct 44.6 % (39.6-49.0) 03/25/22 22:55 Plt Count 297 K/uL (152-406) 03/25/22 22:55 PT 13.2 SECONDS (9.5-12.5) H 03/25/22 22:55 INR 1.20 03/25/22 22:55 Sodium 138 mmol/L (136-145) 03/25/22 22:55 Potassium 3.7 mmol/L (3.5-5.1) 03/25/22 22:55 BUN 15 mg/dL (7-18) 03/25/22 22:55 Creatinine 1.15 mg/dL (0.55-1.3) 03/25/22 22:55 Glucose 125 mg/dL (74-106) H 03/25/22 22:55 Magnesium 2.1 mg/dL (1.8-2.4) 03/25/22 22:55 Total Bilirubin 0.6 mg/dL (0.2-1.0) 03/25/22 22:55 AST 38 U/L (15-37) H 03/25/22 22:55 ALT 39 U/L (12-78) 03/25/22 22:55 Alkaline Phosphatase 47 U/L (45-117) 03/25/22 22:55 Home Medications: RX: Pantoprazole Sodium 40 mg PO BID #60 tab 03/26/22 New Medications: RX: Pantoprazole Sodium 40 mg PO BID #60 tab Physician Discharge Instructions: 1. Please call and schedule a follow-up appointment with your PCP (Dr. Key) in 3-5 days 2. Please call and schedule a follow-up appointment with Gastroenterology (Dr. Estrada) in 1 week Please start soft diet today, and advance to regular consistency tomorrow. Diet: Regular Activity: Ad hugo Followup: Nathanael Key DO, DO [Primary Care Provider] - Zach Estrada MD [ASSOCIATE-ACTIVE - CAN ADMIT] - Time spent managing pt's care (in minutes): 20
[2022-03-26 12:11] VITALS: BP 128/90; TEMP 97.9; O2SAT 100
--- NOTE | 2022-03-26 15:20 | CON ---
Reason For Consultation: Esophageal meat bolus impaction with dysphagia to solids, liquids, and sali va. History Of Present Illness: Patient is a 36-year-old white male with history of esophageal food impa ction 4 years ago. Patient presents to hospital now with acute dysphagia to solids, liquids, and romel dinorah after eating steak fajitas last night. Patient stated he had steak fajitas late last night and b rashad having problems swallowing and it advanced or progressed to problems with solids, liquids, and e mariusz saliva and now he has to spit all his saliva out into a bag. Patient 4 years ago he had a simila r episode and was brought into the hospital where urgent upper endoscopy was performed and food bolus removed. Past Medical History: The only thing for his past medical history is prior food bolus and esophageal impaction 4 years ago. Medications: None. Allergies: NONE. Review of Systems: Patient has dysphagia to solids, liquids, saliva. He denies any fevers, chills, night sweats, heat o r cold intolerance, muscle aches, joint aches, backaches, depression, anxiety, chest pain, short of b reath, seizure, syncope, hematemesis, coffee-grounds emesis, nausea, vomiting, hematuria, dysuria, po lydipsia, epistaxis, hemoptysis. He denies any gastric reflux disease, heartburn, or other. Physical Examination: Vital Signs: Temperature is afebrile, pulse 58, respirations 12, blood pressure 113/72, O2 saturatio n 90% to 100%. General: He is a well-nourished, well-developed, healthy male, muscular, in no acute distress. Stat ed he cannot swallow solids, liquids, or even saliva, spitting into a bag. HEENT: Normocephalic, atraumatic. Anicteric. Pupils equal, round, and reactive to light. Extraocu lar movements intact. Oropharynx clear. Neck: Supple. No masses. Respirations: Clear to auscultation bilaterally. Cardiac: Regular rate and rhythm. Gastrointestinal: Positive bowel sounds. Soft, nontender, nondistended. No hepatosplenomegaly. Extremities: No clubbing, cyanosis, or edema. 2+ pulses. Neuro: Alert and oriented x3. Grossly nonfocal. 5/5 motor sensation to light touch. Laboratory Data: Patient has a white count of 7.4, hemoglobin 15.6, hematocrit 44.6, MCV of 89, plat elet count of 297, polys 59%, lymphocytes 37%; monocytes 6%, eosinophils 7%. PT of 13.2, INR 1.2. S odium 130, potassium 3.7, chloride 107, bicarb 29, BUN 15, creatinine 1.2, glucose 125, calcium 8.3. Magnesium 2.1. Total bilirubin , AST of 38, ALT 39, alk phos 47. Troponin I of 7.3. B t ype natriuretic peptide of 13 is normal. Total protein 7.4, albumin 4.0, globulin 3.4. COVID-19 sharlene ting was negative. Impression: Esophageal meat impaction with dysphagia to solids, liquids, and saliva since last night after eating steak fajitas. He has a history of esophageal meat impaction 4 years ago with a simila r event with urgent esophagogastroduodenoscopy done to remove food bolus. Past medical history signi ficant only for esophageal meat impaction 4 years ago with upper endoscopy, removal of meat from the esophagus. Recommendations: 1.Urgent EGD. 2.Continue IV fluids. 3.Keep patient n.p.o. GILSON/CLARE Voice ID: [id number] Report ID: [id number]
== END 2022-03-26 11:45 | disposition home or self-care (01) ==
LOC: ER 21:21 → ERHOLD 03-26 00:49
PROVIDERS: ADMIT Internal Medicine; ATTEND Internal Medicine
PROC: 0DC38ZZ Extirpation of Matter from Lower Esophagus, Via Natural or Artificial Opening Endoscopic (ICD-10-PCS; principal; 2022-03-26 08:30)
DX: T18.128A Food in esophagus causing other injury, initial encounter (principal); K22.2 Esophageal obstruction; X58.XXXA Exposure to other specified factors, initial encounter; Y93.89 Activity, other specified; Y92.9 Unspecified place or not applicable; K20.90 Esophagitis, unspecified without bleeding; K44.9 Diaphragmatic hernia without obstruction or gangrene; Z20.822 Contact with and (suspected) exposure to COVID-19
CPT/HCPCS: 93005; 85025; 80048; 36415; 83735; 85610; 80076; 84484; 83880; 71045; 87811; 43247; J2704 ×2; J1610; J2001; C9113; J2250; J7120 ×2; J7040; J7030; J2405; G0378